=== PATIENT | male | born 1980 ===

== ENCOUNTER 2017-05-16 13:14 | Emergency (ER) | payer MEDICAID ==
[2017-05-16 13:36] VITALS: PULSE 87; RESP 16; TEMP 98.7; O2SAT 98
--- NOTE | 2017-05-16 14:23 | C.PDOC ---
History Of Present Illness 36 year old male presents to the ED with complaints of persistent cough for one week. Patient states he has used Theraflu and NyQuil with some relief, however symptoms persist. He denies fever, shortness of breath, chest pain or other complaints at this time. Time Seen by Provider: 05/16/17 13:43 Chief Complaint (Nursing): Cough, Cold, Congestion History Per: Patient History/Exam Limitations: no limitations Onset/Duration Of Symptoms: Hrs Current Symptoms Are (Timing): Still Present Sick Contacts (Context): None Associated Symptoms: denies: Fever, Chills, Cough, Vomiting, Diarrhea Recent travel outside of the [place]: No Past Medical History Reviewed: Historical Data, Nursing Documentation, Vital Signs Vital Signs: Last Vital Signs Temp 98.7 F 05/16/17 14:43 Pulse 87 05/16/17 14:43 Resp 16 05/16/17 14:43 BP 119/70 05/16/17 14:43 Pulse Ox 98 05/16/17 14:49 Family History: States: Unknown Family Hx - Social History Hx Alcohol Use: No Hx Substance Use: No - Immunization History Hx Tetanus Toxoid Vaccination: No Hx Influenza Vaccination: No Hx Pneumococcal Vaccination: No Review Of Systems Constitutional: Negative for: Fever, Chills Cardiovascular: Negative for: Chest Pain, Palpitations Respiratory: Positive for: Cough. Negative for: Shortness of Breath Gastrointestinal: Negative for: Nausea, Vomiting, Abdominal Pain, Diarrhea Neurological: Negative for: Headache Physical Exam - Physical Exam Appears: Non-toxic, No Acute Distress Skin: Warm, Dry Head: Atraumatic Eye(s): bilateral: Normal Inspection, PERRL, EOMI Ear(s): Bilateral: Normal Nose: Normal Oral Mucosa: Moist Throat: Normal, No Erythema, No Exudate Neck: Normal, Normal ROM, Supple Lymphatic: Normal Exam Chest: Symmetrical, No Deformity Cardiovascular: Rhythm Regular Respiratory: Normal Breath Sounds, No Rales, No Rhonchi, No Wheezing Extremity: Normal ROM, No Tenderness Neurological/Psych: Oriented x3, Normal Speech, Normal Cognition ED Course And Treatment O2 Sat by Pulse Oximetry: 98 (room air ) Progress Note: Patient was instructed to follow up with physician/clinic in 1-2 days for further evaluation. Return to ER if symtpoms persist or worsen. Disposition - Disposition Referrals: Nelson Farooq MD [Medical Doctor] - Disposition: HOME/ ROUTINE Disposition Time: 14:21 Condition: STABLE Additional Instructions: Follow up with primary medical doctor in 1-3 days without fail for further evaluation. Take medications as prescribed. Return to the emergency department at any time if symptoms persist or worsen. Prescriptions: Azithromycin [Zithromax] 250 mg PO DAILY #6 tab Benzonatate [Tessalon Perle] 100 mg PO TID PRN #15 capsule PRN Reason: Cough Instructions: Upper Respiratory Infection (ED) - Clinical Impression Clinical Impression: Bronchitis - Scribe Statement The provider has reviewed the documentation as recorded by the Scribe Angela Bernal All medical record entries made by the Juanjoibstar were at my direction and personally dictated by me. I have reviewed the chart and agree that the record accurately reflects my personal performance of the history, physical exam, medical decision making, and the department course for this patient. I have also personally directed, reviewed, and agree with the discharge instructions and disposition.
[2017-05-16 14:44] VITALS: BP 119/70
== END 2017-05-16 14:43 | disposition home or self-care (01) ==
LOC: C.ER 13:14
DX: J20.9 Acute bronchitis, unspecified (principal)

== ENCOUNTER 2018-12-26 19:12 | Emergency (ER) | payer MEDICAID, OTHER ==
[2018-12-26] MEDS ORDERED: Lidocaine 5% Patch TD STA (20:11)
--- NOTE | 2018-12-26 20:14 | C.PDOC ---
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 pt took 2 advil with mild relief, and tried some icy hot but sts pain got worse, especially after working 17 hours yesterday and standing for much of day. denies any radiation of pain. no numbness or tingling. no bladder or bowel dysfunction. pt took 2 advil again today with mild relief. Time Seen by Provider: 12/26/18 19:39 Chief Complaint (Nursing): Back Pain History Per: Patient History/Exam Limitations: no limitations Onset/Duration Of Symptoms: Days Current Symptoms Are (Timing): Still Present Quality Of Discomfort: "Pain" Previous Symptoms: Back Pain Recent travel outside of the [place]: No Additional History Per: Patient Past Medical History Reviewed: Historical Data, Nursing Documentation, Vital Signs Vital Signs: Last Vital Signs Temp 98.4 F 12/26/18 19:20 Pulse 98 H 12/26/18 19:20 Resp 20 12/26/18 19:20 BP 155/90 H 12/26/18 19:20 Pulse Ox 97 12/26/18 19:20 - Medical History PMH: No Chronic Diseases Surgical History: Pacemaker Family History: States: Unknown Family Hx - Social History Hx Alcohol Use: Yes Hx Substance Use: No - Immunization History Hx Tetanus Toxoid Vaccination: No Hx Influenza Vaccination: No Hx Pneumococcal Vaccination: No Review Of Systems Constitutional: Negative for: Fever, Chills Cardiovascular: Negative for: Chest Pain, Palpitations Respiratory: Negative for: Shortness of Breath Gastrointestinal: Negative for: Nausea, Vomiting, Abdominal Pain Genitourinary: Negative for: Incontinence Musculoskeletal: Positive for: Back Pain Neurological: Negative for: Weakness, Numbness Physical Exam - Physical Exam Appears: Non-toxic, No Acute Distress Skin: Warm, Dry Head: Atraumatic, Normacephalic Eye(s): bilateral: Normal Inspection Neck: Normal ROM, Supple Chest: Symmetrical, Other (device implanted left chest wall) Cardiovascular: Rhythm Regular, No Murmur Respiratory: Normal Breath Sounds, No Rales, No Rhonchi, No Wheezing Gastrointestinal/Abdominal: Bowel Sounds, Soft, No Tenderness, No Guarding, No Rebound Back: Normal Inspection, No Vertebral Tenderness, Paraspinal Tenderness (bilateral lumbar area) Extremity: Normal ROM, No Tenderness, No Swelling Neurological/Psych: Oriented x3, Normal Speech, Normal Cognition, Normal Motor, Normal Sensation Gait: Steady ED Course And Treatment O2 Sat by Pulse Oximetry: 97 (On RA) Pulse Ox Interpretation: Normal Medical Decision Making Medical Decision Makin pt reports decreased pain after toradol and lidoderm, will d/c home with nsaids. pt has f/u appt with pmd later his week. Disposition Counseled Patient/Family Regarding: Diagnosis, Need For Followup, Rx Given - Disposition Disposition: HOME/ ROUTINE Disposition Time: 20:46 Condition: IMPROVED Additional Instructions: [place] ibuprofeno cada 6-8 horas para el dolor (con comida). Quitarse el parche en 12 horas. Melissa un seguimiento con reno mdico el viernes segn lo programado. Evite levantar objetos pesados. Regrese a la colby de emergencias para cualquier sntoma peor. Take ibuprofen every 6-8 hours for pain (with food). Take patch off on 12 hours. Follow up with your doctor on Wednesday as scheduled. Avoid heavy lifting. Return to ER for any worse symptoms. Prescriptions: Ibuprofen [Motrin] 600 mg PO TID #30 tab Instructions: Lumbar Muscle Strain (DC) Forms: Gen Discharge Inst [place]istanian, [employer] (Tristanian) Print Language: [place] - Clinical Impression Clinical Impression: Lumbar sprain
[2018-12-26] MEDS ORDERED: Lidocaine 5% Patch TD ONE (20:19)
[2018-12-26 20:48] VITALS: BP 142/79; PULSE 74; RESP 16; TEMP 98
[2018-12-26 20:50] VITALS: O2SAT 97
== END 2018-12-26 21:02 | disposition home or self-care (01) ==
LOC: C.ER 19:12
DX: S33.5XXA Sprain of ligaments of lumbar spine, initial encounter (principal); X50.0XXA Overexertion from strenuous movement or load, initial encounter
CPT/HCPCS: 96372; 99283; J1885